=== PATIENT | female | born 1950 | race Caucasian/White ===

== ENCOUNTER 2017-01-26 08:00 | Outpatient (CLI) | payer OTHER | END 2017-01-26 08:01 | disposition home or self-care (01) | LOC: LAB.R 08:00 | PROVIDERS: ATTEND Nurse Practitioner Family | DX: Z12.11 Encounter for screening for malignant neoplasm of colon (principal) | CPT/HCPCS: 81599 ==

== ENCOUNTER 2017-01-26 09:10 | Outpatient (CLI) | payer OTHER ==
[2017-01-26 18:20] LABS: BASOPHILS % (AUTO) 0.6 %; EOSINOPHILS # (AUTO) 0.1 10^3/uL (0.0-0.7); EOSINOPHILS % (AUTO) 2.5 %; HCT - HEMATOCRIT 40.4 % (37.0-47.0); HGB - HEMOGLOBIN 13.3 g/dL (12.0-16.0); LYMPHOCYTES # (AUTO) 2.2 10^3/uL (1.5-3.5); LYMPHOCYTES % (AUTO) 40.9 %; MEAN CORPUSCULAR HEMOGLOBIN 27.1 pg (27.0-31.0); MEAN CORPUSCULAR HGB CONC 32.9 g/dL (32.0-36.0); MEAN CORPUSCULAR VOLUME 82.4 fL (81.0-99.0); MEAN PLATELET VOLUME 8.2 fL (7.9-10.8); MONOCYTES # (AUTO) 0.4 10^3/uL (0.0-1.0); MONOCYTES % (AUTO) 7.7 %; NEUTROPHILS # (AUTO) 2.6 10^3/uL (1.5-6.6); NEUTROPHILS % (AUTO) 48.3 %; NUCLEATED RED BLOOD CELLS AUTO 0.1 /100WBC; RED BLOOD COUNT 4.91 10^6/uL (4.20-5.40); RED CELL DISTRIBUTION WIDTH 13.6 % (12.0-15.0); UNCORRECTED WHITE BLOOD COUNT 5.4 x10^3/uL; WHITE BLOOD COUNT 5.4 x10^3/uL (4.8-10.8)
[2017-01-26 18:31] LABS: ALBUMIN/GLOBULIN RATIO 1.8 (1.0-2.2); BILIRUBIN,TOTAL 1.1 mg/dL (0.2-1.0); BUN - BLOOD UREA NITROGEN 9 mg/dL (6-20); CALCIUM 9.3 mg/dL (8.5-10.3); CARBON DIOXIDE - CO2 28 mmol/L (21-32); CHLORIDE 96 mmol/L (101-111); CHOL/HDL RATIO 3.1 (<4.4); CHOLESTEROL 191 mg/dL; CREATININE 0.6 mg/dL (0.4-1.0); GFR - MDRD 100 (>89); GLUCOSE 92 mg/dL (70-100); HDL CHOLESTEROL 62 mg/dL; LDL/HDL RATIO 1.9 (<4.4); POTASSIUM 3.7 mmol/L (3.5-5.0); SODIUM 133 mmol/L (135-145); TOTAL PROTEIN 6.4 g/dL (6.7-8.2); TRIGLYCERIDES 56 mg/dL; VLDL CHOLESTEROL 11 mg/dL
== END 2017-01-26 09:11 | disposition home or self-care (01) ==
LOC: LAB.S 09:10
PROVIDERS: ATTEND Nurse Practitioner Family
DX: Z13.228 Encounter for screening for other metabolic disorders (principal); I10 Essential (primary) hypertension; Z13.0 Encounter for screening for diseases of the blood and blood-forming organs and certain disorders involving the immune mechanism
CPT/HCPCS: 36415; 80053; 80061; 81599; 84443; 85025

== ENCOUNTER 2018-12-14 13:40 | Outpatient (CLI) | payer MEDICARE, OTHER ==
--- NOTE | 2018-12-15 13:50 | DEXA Report ---
Reason: POSTMENOPAUSAL STATE Procedure Date: 12/14/2018 Accession Number: [id number] / [id number] Procedure: DEX - Dexa Spine and/or Hip CPT Code: FULL RESULT: EXAM: Dexa Spine and/or Hip DATE: 12/14/2018 4:15 PM CLINICAL HISTORY: POSTMENOPAUSAL STATE TECHNIQUE: Dual energy x-ray absorptiometry (DXA) was performed on a Outline System. Regions measured are the AP Spine, femoral neck, and if needed forearm. COMPARISON: 03/21/2008. In accordance with the International Society for Clinical Densitometry (ISCD) guidelines, data from previous exams may be reanalyzed using current recommendations and techniques. This is done to allow a more accurate basis for comparison with the current study. FINDINGS: The data for the lumbar spine is as follows: BMD (g/cm/cm) T-SCORE Z-SCORE REGION L1 0.864 -2.2 -0.4 L2 0.923 -2.3 -0.5 L3 1.147 -0.4 1.4 L4 1.189 -0.1 1.7 TOTAL 1.036 -1.2 0.6 NOTE: All evaluable vertebrae are used for classification The data for the hip is as follows: BMD (g/cm/cm) T-SCORE Z-SCORE REGION Neck 0.692 -2.5 -0.8 TOTAL 0.787 -1.8 -0.3 NOTE: The femoral neck or total proximal femur, whichever is lowest, is used for classification. IMPRESSION: THE WHO CLASSIFICATION BASED ON THE INTERNATIONAL REFERENCE STANDARD IS OSTEOPOROSIS (REFERENCE LEFT FEMORAL NECK). THE FRACTURE RISK IS HIGH. RECOMMENDATION: Patients with diagnosis of osteoporosis or osteopenia should have regular bone mineral density assessment. For those eligible for Medicare, routine testing is allowed once every 2 years. Testing frequency can be increased for patients who have rapidly progressing disease or for those who are receiving medical therapy to restore bone mass. COMMENT: World Health Organization (WHO) definitions for osteoporosis and osteopenia: NORMAL BMD: T-score at -1.0 or higher, fracture risk is low OSTEOPENIA BMD: T-score between -1.0 and -2.5, fracture risk is increased. OSTEOPOROSIS BMD: T-score at -2.5 or lower, fracture risk is high. National Osteoporosis Foundation recommends: 1. Obtain adequate dietary calcium (at least 1200 mg per day) and vitamin D (400-800 international units per day). 2. Participate, as appropriate, in regular weightbearing and muscle-strengthening exercise. 3. Avoid tobacco use and reduce alcohol and caffeine intake. 4. For more detailed information see the website at www.NOF.org.
== END 2018-12-14 13:41 | disposition home or self-care (01) ==
LOC: DI 13:40
PROVIDERS: ATTEND Registered Nurse
DX: M81.0 Age-related osteoporosis without current pathological fracture (principal)
CPT/HCPCS: 77080

== ENCOUNTER 2018-12-14 13:41 | Outpatient (CLI) | payer MEDICARE, OTHER ==
--- NOTE | 2018-12-14 17:08 | Mammography Report ---
Reason: SCREENING MAMMO Procedure Date: 12/14/2018 Accession Number: [id number] / [id number] Procedure: MAJOR - Screening Mammo w/Chadd CPT Code: FULL RESULT: EXAM: Screening Mammo w/Chadd DATE: 12/14/2018 2:45 PM CLINICAL HISTORY: Routine screening TECHNIQUE: (B) - Bilateral CC and MLO views were obtained. COMPARISON: 06/06/2015, 06/19/2011 and 07/10/2009 PARENCHYMAL PATTERN: (A) - The breasts demonstrate scattered fibroglandular densities bilaterally. FINDINGS: There is no significant interval change on the right. There are no suspicious masses, calcifications, or areas of distortion. In the left lower inner quadrant 4 to 5 cm from the nipple is a new ovoid well-circumscribed high density nodule measuring maximally 5 mm. This most likely represents a small cyst but further evaluation by ultrasound is suggested. Otherwise no dominant mass, architectural distortion, suspicious microcalcifications or interval change. IMPRESSION: Incomplete examination. BI-RADS category 0. Needs left breast ultrasound. Negative right breast. RECOMMENDATION: (ADDUS) - Targeted ultrasound recommended. Left breast BI-RADS CATEGORY: STANDARD QUALIFYING STATEMENTS: 1. This examination was not reviewed with the aid of Computer-Aided Detection (CAD). 2. A negative or benign imaging report should not preclude biopsy if clinically suspicious findings are present. 3. Dense breasts may obscure an underlying neoplasm. 4. This examination was reviewed with the aid of 3D breast imaging (tomosynthesis).
== END 2018-12-14 13:42 | disposition home or self-care (01) ==
LOC: DI 13:41
DX: Z12.31 Encounter for screening mammogram for malignant neoplasm of breast (principal); R92.8 Other abnormal and inconclusive findings on diagnostic imaging of breast
CPT/HCPCS: 77063; 77067

== ENCOUNTER 2018-12-24 10:42 | Outpatient (CLI) | payer MEDICARE, OTHER ==
--- NOTE | 2018-12-24 15:01 | Ultrasound Report ---
Reason: ABNORMAL MAMMOGRAM Procedure Date: 12/24/2018 Accession Number: [id number] / [id number] Procedure: US - Breast Unilateral Limited CPT Code: FULL RESULT: EXAM: Breast Unilateral Limited DATE: 12/24/2018 11:27 AM CLINICAL HISTORY: ABNORMAL MAMMOGRAM COMPARISON: 12/14/2018 through 07/10/2009. TECHNIQUE: Targeted ultrasound was performed of the left breast in the area of clinical concern at 9 o'clock and 4 cm distance from the nipple. Color Doppler was employed as appropriate. FINDINGS: Corresponding to the mammographic findings is a 0.3 x 0.4 x 0.6 cm wider than tall hypoechoic cystic structure with increased through transmission and no detectable solid soft tissue component, typically benign finding. No suspicious mass is detected. IMPRESSION: Benign findings RECOMMENDATION: Recommend routine annual Screening mammography unless otherwise clinically indicated. BIRADS CATEGORY 2: Benign findings RADIA
== END 2018-12-24 10:43 | disposition home or self-care (01) ==
LOC: DI 10:42
PROVIDERS: ATTEND Registered Nurse
DX: R92.8 Other abnormal and inconclusive findings on diagnostic imaging of breast (principal)
CPT/HCPCS: 76642

== ENCOUNTER 2019-07-01 10:57 | Outpatient (CLI) | payer MEDICARE, OTHER ==
--- NOTE | 2019-07-02 10:57 | XRAY Report ---
Reason: PAIN IN RIGHT HIP, KNEE Procedure Date: 07/01/2019 Accession Number: [id number] / [id number] Procedure: XRS - Hip w/Pelvis 2-3V RT CPT Code: Final Report FULL RESULT: EXAM: RIGHT HIP RADIOGRAPHY EXAM DATE: 07/01/2019 11:39 AM. CLINICAL HISTORY: Right hip pain. COMPARISON: None. TECHNIQUE: 2 views. FINDINGS: Bones: Normal. No fractures or bone lesion. Joints: Mild osteoarthritic changes noted. No dislocation. The hip joint space is narrowed. Soft Tissues: Normal. No soft tissue swelling. IMPRESSION: Mild osteoarthritic changes without acute fracture. RADIA
--- NOTE | 2019-07-02 10:57 | XRAY Report ---
Reason: PAIN IN RIGHT HIP JOINT, RIGHT KNEE Procedure Date: 07/01/2019 Accession Number: [id number] / [id number] Procedure: XRS - Knee 3 View RT CPT Code: Final Report FULL RESULT: EXAM: RIGHT KNEE RADIOGRAPHY EXAM DATE: 07/01/2019 11:39 AM. CLINICAL HISTORY: Knee pain. COMPARISON: None. TECHNIQUE: 3 views. FINDINGS: Bones: Normal. No fractures or bone lesions. Joints: Mild joint space narrowing seen. No effusion. No subluxations. Soft Tissues: Normal. No soft tissue swelling. IMPRESSION: Minimal osteoarthritic changes without acute fracture. RADIA
== END 2019-07-01 10:58 | disposition home or self-care (01) ==
LOC: DI.S 10:57
PROVIDERS: ATTEND Nurse Practitioner Family
DX: M16.11 Unilateral primary osteoarthritis, right hip (principal); M17.11 Unilateral primary osteoarthritis, right knee

== ENCOUNTER 2020-01-19 09:07 | Outpatient (CLI) | payer MEDICARE, OTHER ==
[2020-01-19 15:53] LABS: ALBUMIN 4.2 g/dL (3.2-5.5); ALBUMIN/GLOBULIN RATIO 1.5 (1.0-2.2); ALKALINE PHOSPHATASE 73 IU/L (42-121); ALT ALANINE AMINOTRANSFERASE 23 IU/L (10-60); AST ASPARTATE AMINOTRANSFERASE 29 IU/L (10-42); BILIRUBIN,TOTAL 1.1 mg/dL (0.2-1.0); BUN - BLOOD UREA NITROGEN 9 mg/dL (6-20); CALCIUM 9.3 mg/dL (8.5-10.3); CARBON DIOXIDE - CO2 29 mmol/L (21-32); CHLORIDE 99 mmol/L (101-111); CHOLESTEROL 226 mg/dL; CREATININE 0.6 mg/dL (0.4-1.0); GLUCOSE 91 mg/dL (70-100); HDL CHOLESTEROL 76 mg/dL; LDL CHOLESTEROL,CALCULATED 139 mg/dL; LDL/HDL RATIO 1.8 (<4.4); SODIUM 137 mmol/L (135-145); VLDL CHOLESTEROL 11 mg/dL
== END 2020-01-19 09:08 | disposition home or self-care (01) ==
LOC: LAB.S 09:07
PROVIDERS: ATTEND Registered Nurse
DX: I10 Essential (primary) hypertension (principal); M81.0 Age-related osteoporosis without current pathological fracture; Z13.6 Encounter for screening for cardiovascular disorders
CPT/HCPCS: 36415; 80053; 80061; 82306; 83721

== ENCOUNTER 2021-02-08 15:27 | Outpatient (CLI) | payer MEDICARE, OTHER ==
[2021-02-08] MEDS ORDERED: IOPAMIDOL-300 50 ML VIAL ONE (15:36)
[2021-02-08] MEDS ORDERED: IOVERSOL 320 100 ML VIAL IVP ONE ×2 (15:36→17:31)
[2021-02-08 16:24] LABS: CALCIUM 9.4 mg/dL (8.5-10.3); CREATININE 0.5 mg/dL (0.4-1.0); POTASSIUM 4.2 mmol/L (3.5-5.0)
[2021-02-08] MEDS ORDERED: IOPAMIDOL-300 50 ML VIAL PO ONE (17:32)
--- NOTE | 2021-02-08 18:53 | CT Report ---
PROCEDURE: Abdomen/Pelvis W INDICATIONS: INTRA ABD AND PELVIC SWELLING CONTRAST: IV CONTRAST: Optiray 320 ml: 100 PO CONTRAST: Isovue 300 ml50 TECHNIQUE: After the administration of IV and oral contrast, 5 mm thick sections acquired from the diaphragms to the symphysis. 5 mm thick coronal and sagittal reformats were acquired. For radiation dose reducti on, the following was used: automated exposure control, adjustment of mA and/or kV according to abdi ent size. COMPARISON: None. FINDINGS: Image quality: Excellent. ABDOMEN: Lung bases: Lung bases are clear. Heart size is normal. Solid organs: Liver is mildly prominent. The spleen is Normal in size and enhancement. Gallbladder is contracted and grossly unremarkable. Biliary system is non dilated. Pancreas enhances normally. No adrenal nodules. Kidneys demonstrate normal size and enhancement, without hydronephrosis. Peritoneum and bowel: Bowel loops demonstrate normal wall thickness and caliber. No free fluid or a ir. Significant colonic stool is present without obstruction. Scattered colonic diverticula are pres ent. Nodes and vessels: No retroperitoneal or mesenteric adenopathy by size criteria. Aorta and inferior vena cava are normal in size. Miscellaneous: No ventral hernias. PELVIS: Genitourinary: Bladder wall thickness is normal. Miscellaneous: No inguinal hernias or adenopathy. Bones: No suspicious bony lesions. No vertebral body compression fractures. IMPRESSION: 1. Significant colonic stool without obstruction. Overall appearance is most consistent with constipa tion. Reviewed by: Myla Mendez MD on 02/08/2021 6:51 PM PDT Approved by: Myla Mendez MD on 02/08/2021 6:51 PM PDT Station ID: [id number]
== END 2021-02-08 15:28 | disposition home or self-care (01) ==
LOC: LAB 15:27
PROVIDERS: ATTEND Nurse Practitioner Family
DX: R19.00 Intra-abdominal and pelvic swelling, mass and lump, unspecified site (principal)
CPT/HCPCS: 36415; 74177; 80048; Q9967

== ENCOUNTER 2021-09-24 08:40 | Outpatient (CLI) | payer MEDICARE, OTHER ==
[2021-09-24 09:10] LABS: BILIRUBIN,URINE NEGATIVE (NEGATIVE); GLUCOSE, URINE (UA) NEGATIVE (NEGATIVE); KETONES,URINE (UA) NEGATIVE (NEGATIVE); LEUKOCYTE ESTERASE, URINE NEGATIVE (NEGATIVE); NITRITE,URINE NEGATIVE (NEGATIVE); OCCULT BLOOD,URINE NEGATIVE (NEGATIVE); PH,URINE 6.5 PH (5.0-7.5); PROTEIN,URINE NEGATIVE (NEGATIVE); UROBILINOGEN,URINE 0.2 (NORMAL) E.U./dL (NORMAL)
[2021-09-24 09:26] LABS: BACTERIA,URINE None Seen /HPF (None Seen); CLARITY,URINE CLEAR (CLEAR); RBC,URINE None Seen /HPF (0-5); SQUAMOUS EPITHELIAL CELL,UR RARE Squamous (<= Few); WBC,URINE 0-3 /HPF (0-5)
[2021-09-24 20:34] LABS: BACTERIAL VAGINOSIS DNA NEGATIVE (NEGATIVE); CANDIDA GLABRATA DNA NEGATIVE (NEGATIVE); CANDIDA GROUP DNA NEGATIVE (NEGATIVE); CANDIDA KRUSEI DNA NEGATIVE (NEGATIVE); TRICHOMONAS VAGINALIS DNA NEGATIVE (NEGATIVE)
== END 2021-09-24 08:41 | disposition home or self-care (01) ==
LOC: LAB 08:40
PROVIDERS: ATTEND Obstetrics & Gynecology
DX: R30.0 Dysuria (principal); N76.0 Acute vaginitis
CPT/HCPCS: 81001; 87086; 87661; 87801

== ENCOUNTER 2022-06-06 12:40 | Outpatient (CLI) | payer MEDICARE, OTHER ==
--- NOTE | 2022-06-06 14:22 | DEXA Report ---
PROCEDURE: Dexa Spine and/or Hip INDICATIONS: OSTEOPOROSIS TECHNIQUE: Dual energy x-ray absorptiometry (DXA) was performed on a [employer] System. Regions measur ed are the AP Spine, femoral neck, and if needed forearm. COMPARISON: 12/14/2018. FINDINGS: Lumbar Spine: Bone Mineral Density 1.131 g/cm/cm,T score -0.4, normal. Previous T score of -1.2. Since the previ ous exam there has been a significant interval increase in bone mineral density. Unclear if this is r elated to true improvement versus increase in degenerative changes. Left Hip: Bone Mineral Density 0.784 g/cm/cm,T score -1.8, osteopenia. Previous T score -1.8, no significant c hange. Left Femoral Neck: Bone Mineral Density 0.778 g/cm/cm, T score -1.9, osteopenia. Previous T score -2.5. (T score greater or equal to -1.0: NORMAL) (T score from -1.1 to -2.4: OSTEOPENIA) (T score less than or equal to -2.5 to: OSTEOPOROSIS) Impression: Osteopenia. Patients with diagnosis of osteoporosis or osteopenia should have regular bone mineral density assess ment. For those eligible for Medicare, routine testing is allowed once every 2 years. Testing frequ ency can be increased for patients who have rapidly progressing disease or for those who are receivin g medical therapy to restore bone mass. Reviewed by: Nelson Hoyt MD on 06/06/2022 2:21 PM PDT Approved by: Nelson Hoyt MD on 06/06/2022 2:21 PM PDT Station ID: [id number]
== END 2022-06-06 12:41 | disposition home or self-care (01) ==
LOC: DI 12:40
PROVIDERS: ATTEND Registered Nurse
DX: M85.89 Other specified disorders of bone density and structure, multiple sites (principal)